=== PATIENT | female | born 1970 | race Caucasian/White ===

== ENCOUNTER 2024-04-06 21:02 | Emergency (ER) | payer SELFPAY ==
[2024-04-06 21:04] VITALS: BP 210/105; PULSE 136; RESP 18; TEMP 37.1; O2SAT 98; BMI 27.4
--- NOTE | 2024-04-06 21:10 | CT_ITS ---
PROCEDURE INFORMATION: Exam: CT Abdomen And Pelvis Without Contrast Exam date and time: 04/06/2024 9:24 PM Age: 53 years old Clinical indication: Abdominal pain; Flank; Right; Additional info: Right flank pain TECHNIQUE: Imaging protocol: Computed tomography of the abdomen and pelvis without contrast. Radiation optimization: All CT scans at this facility use at least one of these dose optimization techniques: automated exposure control; mA and/or kV adjustment per patient size (includes targeted exams where dose is matched to clinical indication); or iterative reconstruction. COMPARISON: CT ABDOMEN PELVIS WO CON 04/28/2019 12:57 PM FINDINGS: Liver: Normal. No mass. Gallbladder and biliary ducts: Normal. No calcified stones. No ductal dilation. Pancreas: Normal. No ductal dilation. Spleen: Normal. No splenomegaly. Adrenal glands: Normal. No mass. Kidneys and ureters: Stable right moderate hydronephrosis. Stable cortical irregularity in the right kidney. Normal left kidney. Stomach and bowel: Unremarkable. No obstruction. No mucosal thickening. Appendix: No evidence of appendicitis. Intraperitoneal space: Unremarkable. No free air. No significant fluid collection. Vasculature: Unremarkable. No abdominal aortic aneurysm. Lymph nodes: Unremarkable. No enlarged lymph nodes. Urinary bladder: Unremarkable as visualized. Reproductive: Unremarkable as visualized. Bones/joints: Unremarkable. No acute fracture. Soft tissues: Unremarkable. IMPRESSION: No acute intra-abdominal abnormality. Stable right moderate hydronephrosis. Consistent with congenital UPJ obstruction.
--- NOTE | 2024-04-06 21:12 | ED_ITS ---
Discharge Plan Disposition Patient Disposition: Home, Self-Care Prescriptions Prescriptions: No Action tramadol 50 MG tablet 50 mg PO Q6 PRN (Reason: ([employer] Use Only) Pain Per Pt) Qty: 20 0RF acetaminophen 500 MG tablet 1,000 mg PO TID PRN (Reason: ([employer] Use Only) Pain Per Pt) Qty: 60 0RF ketorolac 10 MG tablet 10 mg PO Q6H 5 Days Qty: 20 0RF tamsulosin 0.4 MG capsule 0.4 mg PO HS Qty: 30 0RF Referrals Follow up/Referrals: Abdulaziz Gonzales [Primary Care Provider] - See instructions Jose Miguel Tobin MD [Staff Physician] - See instructions Activity Restrictions/Add. Instructions Additional Instructions/Restrictions: There is evidence of hydronephrosis on her CT scan which may be from old stones or recently passed stones. Please follow-up with urology to ensure resolution. You do have a urinary tract infection as well please take your antibiotics to completion. Return with any significant worsening of your symptoms. Clinical Impressions Clinical Impression: Acute right flank pain, Pyelonephritis, Hydronephrosis Instructions Patient Instructions: DI for Acute Abdominal Pain Print Language Print Language: Indian Discharge ED Provider: Jorje Godoy General Adult HPI General Chief complaint: Abdominal Pain Stated complaint: lower back pain,possible kidney stone Time Seen by Provider: 04/06/24 21:06 History of Present Illness HPI narrative: Patient is a 53-year-old female with a known history of kidney stones who presents today with what she believes is a recurrent kidney stone. Pain started suddenly 1-1/2 hours ago on the right flank radiating into her right groin with some urinary urgency. Denies any frequency dysuria hematuria etc. No other significant past medical history. She did take 400 mg of ibuprofen prior to arrival with some mild improvement in symptoms. No nausea vomiting fevers or CVA pain from historical standpoint. Related Data Previous Rx's ?Medication ?Instructions ?Recorded acetaminophen 500 mg tablet 1,000 mg (2 x 500 mg) PO TID PRN 04/28/19 ([employer] Use Only) Pain Per Pt #60 tabs ketorolac 10 mg tablet 10 mg PO Q6H 5 days #20 tabs 04/28/19 tamsulosin 0.4 mg capsule 0.4 mg PO HS #30 caps 04/28/19 tramadol 50 mg tablet 50 mg PO Q6 PRN ([employer] Use Only) 04/28/19 Pain Per Pt #20 tabs Allergies Allergy/AdvReac Type Severity Reaction Status Date / Time No Known Allergies Allergy Verified 04/28/19 12:22 [facility] Disclaimer: The information contained in this section may have been updated after the patient was seen, as this information can be updated by other users. Social History Smoking Status: Current every day smoker alcohol intake: never current occupational status: employed Travel in the last 8 weeks: None housing: house Have you lived/traveled outside [place] in past 30 days?: No Contact w/someone who lives/traveled outside [place] past 30 days?: No Exposure to someone with infectious disease in past 14 days?: No Do you have a fever (greater than 100.4 F or 38 C)?: No Have you tested positive for COVID-19: No Exposed to someone with COVID-19 in past 14 days?: No Do you have a sore throat?: No Do you have a cough?: No Do you have any weakness?: No Do you have any diarrhea?: No Are you experiencing any unusual bleeding?: No Do you have any muscle aches/pain?: Yes Do you have any abdominal pain?: No Are you experiencing loss of taste or smell?: No Other Medical History Have you received the Flu Vaccine for this season: No Have you received the Pneumonia Vaccine: No ROS Obtained: Yes All systems reviewed & no additional complaints except as documented Physical Exam General General appearance: alert and in no apparent distress Respiratory Respiratory exam: Present normal lung sounds bilaterally; Absent respiratory distress Cardiovascular Cardiovascular exam: Present regular rate Abdominal Exam Abdominal exam: Present soft; Absent distention or tenderness Neurological Exam Neurological exam: Present alert and oriented X3 Medical Decision Making Medical Records Screening: Per USPSTF and CDC recommendations, given the prevalence of disease in our region, it is our hospital?s policy to screen for HIV and viral Hepatitis for all patients aged 18 and over and those with ongoing risk factors. Keven Inquiry Pt receiving controlled substance: No Vital Signs: 04/06/24 21:04 04/06/24 21:30 04/06/24 22:00 Temperature 98.7 F Temperature Source Oral Pulse Rate 99 H 80 Pulse Rate [Right Radial] 136 H Respiratory Rate 18 Blood Pressure 184/104 H 162/82 H Blood Pressure [Right Arm] 210/105 H Blood Pressure Mean [Right Arm] 140 Blood Pressure Source [Right Arm] Automatic Cuff 02 Sat by Pulse Oximetry 98 99 99 Oxygen Delivery Method Room Air Lab Data Lab results reviewed: Yes I reviewed the patient's lab results. Lab Results 04/06/24 21:16: Urine Color Yellow, Urine Appearance Clear, Urine pH 6.0, Ur Specific [place] 1.020, Urine Protein Trace, Urine Glucose (UA) Negative, Urine Ketones Trace, Urine Blood 3+ A, Urine Nitrate Positive A, Urine Bilirubin 1+ A, Urine Urobilinogen 1.0, Ur Leukocyte Esterase 2+ A, Urine RBC Tntc, Urine WBC 50-100, Ur Transition Epith Cell N, Urine Bacteria 4+ 04/06/24 21:35: WBC 19.5 H, RBC 5.02, Hgb 15.3, Hct 44.2, MCV 88.0, MCH 30.5, MCHC 34.6, RDW 13.0, Plt Count 413, MPV 10.3, Neut % (Auto) 77.6, Lymph % (Auto) 16.3, [place] % (Auto) 4.1, Eos % (Auto) 1.1, Baso % (Auto) 0.6, Neut # (Auto) 15.2 H, Lymph # (Auto) 3.2, [place] # (Auto) 0.8, Eos # (Auto) 0.2, Baso # (Auto) 0.1, Total Counted 100, Neutrophils % (Manual) 80 H, Lymphocytes % (Manual) 17, M onocytes % (Manual) 1 L, Eosinophils % (Manual) 2, Platelet Estimate Slight increase, Sodium 136, Potassium 3.7, Chloride 106, Carbon Dioxide 23, Anion Gap 10.7, BUN 25 H, Creatinine 0.80, Estimated Creat Clear 92, Estimated GFR 75, Est GFR ( Amer) 90, Glucose 135 H, Calcium 9.7, Total Bilirubin 0.4, AST 37 H , ALT 26, Alkaline Phosphatase 132 H, Total Protein 7.6, Albumin 4.5, Globulin 3.1, Albumin/Globulin Ratio 1.5 04/06/24 21:35 04/06/24 21:35 Orders (Tests/Meds): ED MEDICATIONS Discontinued Medications Generic Name Dose Route Start Last Admin Trade Name Freq PRN Reason Stop Dose Admin Cefdinir 300 mg 04/06/24 22:57 Cefdinir 300mg Capsule PO 04/06/24 22:58 ONCE ONE Lactated Ringer's 1,000 mls @ 999 mls/hr 04/06/24 21:15 04/06/24 21:44 Lactated Ringer's 1000 Ml Bag IV 04/06/24 22:15 999 mls/hr .Q1H1M MANOJ Administration Ketorolac Tromethamine 15 mg 04/06/24 21:10 04/06/24 21:43 Ketorolac 30mg/Ml Vial IV 04/06/24 21:11 15 mg ONCE ONE Administration Morphine Sulfate 4 mg 04/06/24 21:10 04/06/24 21:36 Morphine 4mg/Ml Syringe IV 04/06/24 21:11 Not Given ONCE ONE Ondansetron HCl 4 mg 04/06/24 21:10 04/06/24 21:44 Ondansetron 4mg/2ml Vial IV 04/06/24 21:11 4 mg ONCE ONE Administration ORDERS Category Date Time Status CT abdomen pelvis wo con Stat Cat Scan 04/06/24 21:10 Completed CBC w/Auto Diff [Complete Blood Count Auto Diff] Stat Lab 04/06/24 21:35 Completed CMP [Comprehensive Metabolic Panel] Stat Lab 04/06/24 21:35 Completed HIV Combo Stat Lab 04/06/24 21:35 Received Hepatitis C Ab Qual. W/ RFX Stat Lab 04/06/24 21:35 Received UA [Urinalysis and Microscopic] Stat Lab 04/06/24 21:16 Completed Urine Culture Stat Micro 04/06/24 21:16 Received Medical Decision Narrative: 53-year-old with above history of physical presents today with right flank pain that was sudden in onset most likely a kidney stone with her history. Differential also includes perforated viscus, gas, ovarian torsion etc. We did not contrasted CT scan for further evaluation and management. IV fluids pain medicine nausea medicine have been administered will reassess. She has no signs or symptoms of sepsis at the moment. She is tachycardic to 130 - show evaluation therefore IV fluids have been administered as well. Reassessment 1102 patient completely better from a clinical standpoint. States she is complete resolution of her symptoms. Vital signs of improved serial exams are benign. Patient does have evidence of a urinary tract infection. Also has leukocytosis. Vital signs have improved. She is afebrile and not septic from my standpoint clinically at this point. First dose of antibiotics given in the ED. Rocephin administered. CT scan was performed I personally interpreted which does show right moderate hydronephrosis which is stable with old CT scans there is the possibility of a recently passed stone but no definitive evidence of a stone at the moment. She has been advised to follow-up with urology to ensure resolution and if she has any significant worsening of her symptoms we need to entertain the idea that there may be some radiolucent component or some obstruction causing this hydronephrosis with which may need to be intervened upon if she does not have improvement in her symptoms. She is aware of this she was given a prescription to treat for pyelonephritis which is a working diagnosis. She was discharged in stable condition. Critical Care Critical Care Time Critical Care Time: No
[2024-04-06 21:21] LABS: Microscopic, Urine URINE MICROSCOPIC (MICROSCOPIC)
[2024-04-06 21:23] LABS: Appearance,Urine CLEAR (Clear); Blood, Urine 3+ (Negative); Color,Urine YELLOW (Yellow); Glucose,Urine (UA) Negative (Negative); Ketones,Urine TRACE (Negative); Leukocyte Esterase,Urine 2+ (Negative); Nitrate,Urine POSITIVE (Negative); Protein,Urine TRACE (Negative)
[2024-04-06 21:30] VITALS: BP 184/104; PULSE 99; O2SAT 99
[2024-04-06 21:31] LABS: Bilirubin,Urine 1+ (Negative)
[2024-04-06 21:43] LABS: RBC,Urine TNTC #/hpf (0-3); Transitional Epi Cells,Urine N #/lpf (0-3); WBC,Urine 50-100 #/hpf (0-3)
[2024-04-06] MEDS: KETOROLAC 30MG/ML VIAL 15 MG IV (21:43)
[2024-04-06 21:44] LABS: Basophils # 0.1 K/mm3 (0-0.2); Basophils % 0.6 % (0.1-2.0); Eosinophils # 0.2 K/mm3 (0.0-0.4); Eosinophils % 1.1 % (0.1-12.0); Hematocrit 44.2 % (37.0-47.0); Hemoglobin 15.3 g/dL (12.2-16.2); Lymphocytes # 3.2 K/mm3 (0.7-4.5); Lymphocytes % 16.3 % (10-50); Mean Corpuscular HGB Conc 34.6 g/dL (31.8-35.4); Mean Corpuscular Hemoglobin 30.5 pg (27.0-31.2); Mean Platelet Volume 10.3 fl (7.4-10.4); Monocytes # 0.8 K/mm3 (0.1-1.0); Monocytes % 4.1 % (1.7-9.3); Neutrophils # 15.2 K/mm3 (1.8-7.8); Neutrophils % 77.6 % (37.0-80.0); Platelet Count 413 K/mm3 (142-424); Red Blood Count 5.02 M/mm3 (4.20-5.40); White Blood Count 19.5 K/mm3 (4.8-10.8)
[2024-04-06 21:44] LABS: Bacteria,Urine 4+ /lpf
[2024-04-06] MEDS: LACTATED RINGERS 1000ML 1,000 ML 999 ML IV (21:44)
[2024-04-06] MEDS: ONDANSETRON 4MG/2ML VIAL 4 MG IV (21:44)
[2024-04-06 21:45] LABS: MANUAL DIFFERENTIAL MANUAL DIFFERENTIAL (MANUAL DIFF)
[2024-04-06 21:52] LABS: Albumin Level 4.5 g/dl (3.5-5.0); Chloride 106 mmol/L (98-107); Sodium 136 mmol/L (136-145)
[2024-04-06 21:53] LABS: Potassium 3.7 mmoL/L (3.5-5.1)
[2024-04-06 21:55] LABS: Alanine Aminotransferase 26 U/L (12-78); Albumin/Globulin Ratio 1.5 (1.1-1.8); Alkaline Phosphatase 132 U/L (38-126); Anion Gap 10.7 mEq/L (5-15); Aspartate Amino Transferase 37 U/L (14-36); Bilirubin,Total 0.4 mg/dl (0.2-1.3); Blood Urea Nitrogen 25 mg/dl (7-17); Carbon Dioxide 23 mmol/L (22.0-30.0); Creatinine Clearance Estimated 92 mL/min (50-200); Estimated Glomerular Filt Rate 75 ml/min (>60); GFR (African American) 90 ML/MIN (>60); Globulin 3.1 g/dL (1.3-3.2); Total Protein,Serum 7.6 g/dl (6.3-8.2)
[2024-04-06 21:56] LABS: Calcium 9.7 mg/dl (8.4-10.2); Glucose 135 mg/dl (74-100)
[2024-04-06 22:00] VITALS: BP 162/82; PULSE 80; O2SAT 99
[2024-04-06 22:24] LABS: Eosinophils % 2 % (0-3); Lymphocytes % 17 % (10-50); Monocytes % 1 % (2-9); Neutrophils % 80 % (42-76); Total Cells Counted 100
[2024-04-06 22:25] LABS: Platelet Estimate Slight Increase
[2024-04-06 23:01] LABS: HIV Combo NEGATIVE (Negative)
[2024-04-06] MEDS: CEFDINIR 300MG CAPSULE 300 MG PO (23:04)
[2024-04-06 23:09] LABS: Hepatitis C Ab Qual. W/ RFX NEGATIVE (Negative)
[2024-04-06 23:13] VITALS: BP 143/79; PULSE 84; RESP 16; TEMP 36.8; O2SAT 98
--- NOTE | 2024-04-08 08:18 | PC.NURSE ---
Discussed prelim urine culture with , pt dc with appropriate antibiotics.
== END 2024-04-06 23:14 | disposition home or self-care (01) ==
PROVIDERS: Emergency Provider Student in an Organized Health Care Education/Training Program; PCP Pediatrics
DX: N13.30 Unspecified hydronephrosis (principal); N12 Tubulo-interstitial nephritis, not specified as acute or chronic; R10.9 Unspecified abdominal pain; M54.50 Low back pain, unspecified; R39.15 Urgency of urination
CPT/HCPCS: 74176; 80053; 81001; 85007; 85025; 85027; 86803; 87086; 87088; 87186; 87389; 96361; 96374; 96375; 99284; J1885; J2405; J7120